=== PATIENT | female | born 1960 | race Caucasian/White ===

== ENCOUNTER 2017-05-28 03:46 | Emergency (ER) | payer MEDICARE ==
[2017-05-28] MEDS ORDERED: Clindamycin HCl 150 MG Cap PO ONE (04:14)
--- NOTE | 2017-05-28 04:22 | EDM.PDOC ---
ED HPI GENERAL MEDICAL PROBLEM - General Chief Complaint: Skin Complaint Stated Complaint: SWOLLEN RT FACE Time Seen by Provider: 05/28/17 04:10 Source of Information: Reports: Patient History Limitations: Reports: No Limitations - History of Present Illness INITIAL COMMENTS - FREE TEXT/NARRATIVE: 57 yo female presents with a 2 day hx of R facial swelling that has been progressive. No fever. Does not have a dentist. Onset: Gradual Onset Date: 05/26/17 Duration: Day(s):, Getting Worse Location: Reports: Face Quality: Reports: Ache Severity: Moderate Improves with: Reports: None Worsens with: Reports: Other (time) Context: Reports: Other (Does not see a dentist for routine care.) Associated Symptoms: Reports: No Other Symptoms Treatments [employer]: Reports: Other (see below) (none) - Related Data Allergies Allergy/AdvReac Type Severity Reaction Status Date / Time aspirin Allergy Hives Verified 05/28/17 03:56 cephalexin [From Keflex] Allergy Anaphylactic Verified 05/28/17 03:55 Shock codeine Allergy Nausea and Verified 05/28/17 03:55 Vomiting morphine Allergy Nausea and Verified 05/28/17 03:56 Vomiting Home Meds: Home Meds Clindamycin HCl [Cleocin HCl] 300 mg PO TID #30 capsule 05/28/17 [Rx] Levothyroxine [Synthroid] 88 mcg PO ACBREAKFAST 05/28/17 [History] Warfarin [Coumadin] 5 mg PO ASDIRECTED 05/28/17 [History] Warfarin [Coumadin] 7.5 mg PO TH 05/28/17 [History] ED ROS GENERAL - Review of Systems Review Of Systems: See Below Constitutional: Reports: No Symptoms HEENT: Reports: Dental Pain, Other (R facial swelling.) Respiratory: Reports: No Symptoms Cardiovascular: Reports: No Symptoms Endocrine: Reports: No Symptoms GI/Abdominal: Reports: No Symptoms : Reports: No Symptoms Musculoskeletal: Reports: No Symptoms Skin: Reports: No Symptoms Neurological: Reports: No Symptoms ED EXAM, SKIN/RASH Exam: See Below Exam Limited By: No Limitations General Appearance: Alert, WD/WN, No Apparent Distress Eye Exam: Bilateral Eye: Normal Inspection Ears: Normal External Exam, Normal Canal, Hearing Grossly Normal, Normal TMs Nose: Normal Inspection, Normal Mucosa, No Blood Throat/Mouth: Normal Inspection, Normal Lips, Normal Gums, Normal Oropharynx, Normal Voice, No Airway Compromise, Other (upper dentures present. Molars on the right side of the mandible are not visibly decayed or tender with percussion. ) Head: Facial Swelling (R side, just anterior to the ear.) Neck: Normal Inspection, Supple, Non-Tender Respiratory/Chest: No Respiratory Distress, Lungs Clear, Normal Breath Sounds, No Accessory Muscle Use Cardiovascular: Regular Rate, Rhythm, No Edema Extremities: Normal Inspection Neurological: Alert, Oriented, CN II-XII Intact, Normal Cognition, No Motor/ Sensory Deficits Psychiatric: Normal Affect, Normal Mood Skin: Warm, Dry, Intact, Normal Color, No Rash Course - Vital Signs Text/Narrative:: Clindamycin 300 mg po - Orders/Labs/Meds Meds: Medications Discontinued Medications Generic Name Dose Route Start Last Admin Trade Name Freq PRN Reason Stop Dose Admin Clindamycin HCl 300 mg 05/28/17 04:14 Cleocin PO 05/28/17 04:15 ONETIME ONE Departure - Departure Time of Disposition: 04:25 Disposition: Home, Self-Care 01 Condition: Good Clinical Impression: Dental infection - Discharge Information Prescriptions: Clindamycin HCl [Cleocin HCl] 300 mg PO TID #30 capsule Referrals: Shavon Reilly [facility] IN[employer] TE[employer]ER [Primary Care Provider] - Forms: ED Department Discharge Additional Instructions: Take clindamycin every 8 hrs as directed. F/U with a dentist within the next 10 days, call for an appt. Take acetaminophen and/or ibuprofen as needed for pain relief.
[2017-05-28] MEDS ORDERED: Clindamycin HCl 150 MG Cap ONE (04:26)
== END 2017-05-28 04:30 | disposition home or self-care (01) ==
LOC: FB.ED 03:46
DX: K04.7 Periapical abscess without sinus (principal); Z88.1 Allergy status to other antibiotic agents; Z88.5 Allergy status to narcotic agent; Z79.01 Long term (current) use of anticoagulants
CPT/HCPCS: 99283; A9270